=== PATIENT | female | born 1965 | race Caucasian/White ===

== ENCOUNTER → 2024-07-30 13:50 | Outpatient (REF) | payer BC, SELFPAY | LOC: HWWDC 13:50 | PROVIDERS: ATTENDING PHYSICIAN Internal Medicine | DX: Z12.31 Encounter for screening mammogram for malignant neoplasm of breast (principal) | CPT/HCPCS: 77063; 77067 ==

== ENCOUNTER → 2024-08-26 14:55 | Outpatient (REF) | payer BC, SELFPAY | LOC: EMG 14:55 | PROVIDERS: ATTENDING PHYSICIAN Physician Assistant Surgical; FAMILY PHYSICIAN Internal Medicine | DX: M25.562 Pain in left knee (principal) | CPT/HCPCS: 95886; 95909 ==

== ENCOUNTER 2025-04-04 20:30 | Emergency (ER) | payer OTHER, SELFPAY ==
[2025-04-04 20:40] VITALS: BP 142/93
[2025-04-04 20:57] LABS: Hematocrit 43.8 % (37.0-47.0); Hemoglobin 14.8 g/dL (12.0-16.0); Mean Corp Hgb Conc. 33.8 g/dL (33.0-37.0); Mean Corpuscular Volume 84.6 fL (81.0-99.0); Nucleated Red Blood Cells % 0 %; Platelet Count 295 10^3/uL (130-400); Red Cell Dist. Width 12.5 % (11.5-14.5)
[2025-04-04 21:11] LABS: ALT (SGPT) 26 U/L (0-35); AST (SGOT) 20 U/L (14-36); Albumin 4.4 g/dl (3.5-5.0); Alkaline Phosphatase 75 U/L (38-126); Blood Urea Nitrogen 23 mg/dl (7-17); Calcium 10.9 mg/dl (8.4-10.2); Carbon Dioxide 34 mmol/L (22-30); Chloride 99 mmol/L (98-107); Glucose 97 mg/dl (70-99); Potassium 4.4 mmol/L (3.5-5.1); Sodium 138 mmol/L (135-145); Total Protein 7.2 g/dl (6.3-8.2); eGFR > 60.00
[2025-04-04 21:19] LABS: Troponin I < 0.012 ng/ml
--- NOTE | 2025-04-04 22:22 | ED.GENMED ---
History of Present Illness
General
Chief Complaint: Chest Pain
Time Seen by Provider: 04/04/25 22:21
History of Present Illness
History of Present Illness:
59-year-old female history of hyperlipidemia presenting with left-sided chest pressure radiating to her neck that [place]. Patient states that she got up and walked around which did not improve or worsen
symptoms. Patient states the symptoms lasted approximately 20 minutes and then resolved. Patient denies any symptoms at this time. Patient reported back discomfort which is since resolved. Patient denies fever, chills, shortness of breath, cough
or leg swelling. Patient states that she fell like she was having indigestion at the time as well. Patient states that this felt different than her typical GERD. Patient states that she was recently on steroids for sinusitis.
Past History
Past History
ED Past Medical History: Other (Chronic back problems)
ED Past Surgical History: None
Social History
Tobacco: Non-smoker
Alcohol: Occasional
Personal:
Living: with family
Phy Exam
Physical Exam
Physical Exam:
General: Alert, no acute distress
Head: NCAT
Eyes: clear conjunctiva
Neck: supple
Cardiac: regular rate and rhythm, no murmur. Palpable and equal radial pulses bilaterally
Lungs: clear to auscultation bilaterally. No wheezes, rales, or rhonchi. Speaking full unlabored sentences. No respiratory distress.
Abdomen: soft, nondistended nontender. No rebound or guarding.
MSK: no lower extremity edema bilaterally. No deformity
Skin: warm, dry
Neuro: Alert and oriented x3. no focal deficits
Scores
Heart Score for Chest Pain Patients
STEMI patient?: No
History: Moderately Suspicious
ECG: Normal
Age: >45 - <65 years
Risk Factors: 1 or 2 Risk Factors
Troponin: </= Normal Limit
Heart Score for Chest Pain Patients: 3
Heart Score Risk: 2.5% MACE over next 6 weeks
Course
Orders/Labs/Results
Orders:
Orders
04/04/25 20:31
ECG [Electrocardiogram (*1)] Urgent
Reason for Study: Chest Pain
EKG- Treatment ONCE
04/04/25 20:47
Complete Blood Count/With Diff Urgent
Comprehensive Metabolic Panel Urgent
Troponin I Urgent
04/04/25 22:23
EKG- Treatment ONCE
CXR2 [CR Chest - 2 Views ] Urgent
Comment:
Reason For Exam: chest pain
04/04/25 23:45
Electrocardiogram (*1) Urgent
Reason for Study: Chest Pain
04/04/25 23:49
Troponin I Urgent
Abnormal Lab Results
04/04/25
20:47
WBC 11.6 H 10^3/uL
(4.8-10.8)
Abs Immat Gran (auto) 0.3 H 10^3/uL
(0-0.05)
Absolute Lymphs (auto) 4.2 H 10^3/uL
(1.2-3.4)
Absolute Monos (auto) 0.7 H 10^3/uL
(0.1-0.6)
Immature Gran % 2.6 H %
(0-0.5)
Carbon Dioxide 34 H mmol/L
(22-30)
BUN 23 H mg/dl
(7-17)
Calcium 10.9 H mg/dl
(8.4-10.2)
04/04/25 20:47
04/04/25 20:47
Vital Signs
Initial and Last Documented VS:
Initial Vital Signs
Temp Pulse Resp BP Pulse Ox
98 F 79 16 142/93 97
04/04/25 20:40 04/04/25 20:40 04/04/25 20:40 04/04/25 20:40 04/04/25 20:40
Last Documented Vital Signs
Temp Pulse Resp BP Pulse Ox
98 F 87 18 158/85 100
04/04/25 20:40 04/05/25 00:56 04/05/25 00:56 04/05/25 00:56 04/05/25 00:56
MDM/Problems Addressed
Differential Diagnosis Includes:
NSTEMI, GERD, angina, pneumothorax
MDM/Problems Addressed:
Results reviewed. Chest x-ray clear with no focal infiltrate or consolidation, pneumothorax. Troponin negative x 2. Mild leukocytosis at 11.6 but no left shift or bandemia, likely related to recent steroid use. Repeat EKG shows normal sinus
rhythm at 66 bpm with NV 168 QTc 406 no acute ischemic changes. Heart score 3. Vital signs stable. Discussed results with patient at bedside. Stable for discharge with cardiology follow-up next week
*Pulse Oximetry
SaO2: 97
Oxygen Mode of Delivery: Room air
Patient hypoxic: no
*EKG
Interpreted by ED Provider?: Yes (EKG shows normal sinus rhythm at 74 bpm with NV 158 QTc 424 no acute ischemic changes)
*Critical Care Note
Total Time (30-74mins, 75-104mins- exclusive of procedures): Not Applicable
ED Attending Note
-
Portions of this chart may have been created with voice recognition software.� Occasional wrong word or��sound alike� substitutions may have occurred due to the inherent limitations of voice recognition software.
Discharge Plan
Departure
Patient Disposition: Home (Routine Discharge)
Date of Disposition: 04/05/25
Time of Disposition: 00:40
Patient with high blood pressure during this ER visit?: Yes
Discharge Problem:
Chest pain
Instructions: Chest Pain CBC Follow Up, BLOOD PRESSURE
Prescriptions:
No Action
cyclobenzaprine 10 MG tablet
10 mg PO HS Qty: 5 0RF
Rx Instructions:
Muscle spasm
naproxen 500 MG tablet
500 mg PO BID Qty: 10 0RF
Rx Instructions:
Take with food.
prednisone 50 MG tablet
50 mg PO DAILY Qty: 4 0RF
Referrals:
UNKNOWN - PT DOES,NOT KNOW [Unknown Provider]
Jah Luciano MD [Active, Cardiology]
Activity Restrictions/Additional Instructions:
Follow-up with cardiology next week
Return to the emergency department for sweating with chest pain, passing out, shortness of breath or new/worsening symptoms
Interventions
Interventions:
*Risk Screen - Suicide Last Done: 04/04/25 20:41
*General Assessment Last Done: 04/05/25 00:57
*Neglect/Abuse Screening Last Done: 04/04/25 20:41
*ED- Fall Risk Assessment Last Done: 04/05/25 00:57
*ED COVID-19 Vaccine History Last Done: 04/05/25 00:57
*Nursing Disposition Last Done: 04/05/25 00:57
ED- Cardiac Assessment Last Done: 04/04/25 22:50
Discharge Date and Time
Discharge Date/Time: 04/05/25 00:59
Print Language: GAMBIAN
[2025-04-04 22:23] VITALS: BP 161/82
[2025-04-04 22:48] VITALS: BMI 26.6
[2025-04-04 22:52] VITALS: BP 161/82
[2025-04-05 00:21] LABS: Troponin I < 0.012 ng/ml
[2025-04-05 00:56] VITALS: BP 158/85
== END 2025-04-05 00:59 | disposition home or self-care (01) ==
LOC: EMR 20:30
PROVIDERS: Student in an Organized Health Care Education/Training Program; EMERGENCY PHYSICIAN Emergency Medicine; FAMILY PHYSICIAN Internal Medicine
DX: R07.89 Other chest pain (principal); R03.0 Elevated blood-pressure reading, without diagnosis of hypertension; E78.5 Hyperlipidemia, unspecified; K21.9 Gastro-esophageal reflux disease without esophagitis
CPT/HCPCS: 99285; 71046; 80053; 84484; 85025; 93005

== ENCOUNTER → 2025-04-15 09:23 | Outpatient (REF) | payer OTHER, SELFPAY | LOC: HWRCS 09:23 | PROVIDERS: ATTENDING PHYSICIAN Internal Medicine Cardiovascular Disease; FAMILY PHYSICIAN Internal Medicine | DX: R07.2 Precordial pain (principal) | CPT/HCPCS: 93306 ==

== ENCOUNTER → 2025-04-21 14:14 | Outpatient (REF) | payer SELFPAY | LOC: HWRAD 14:14 | PROVIDERS: ATTENDING PHYSICIAN Internal Medicine Cardiovascular Disease; FAMILY PHYSICIAN Internal Medicine | DX: R07.2 Precordial pain (principal) | CPT/HCPCS: 75571 ==

== ENCOUNTER → 2025-05-02 07:41 | Outpatient (REF) | payer OTHER, SELFPAY | LOC: RCS 07:41 | PROVIDERS: ATTENDING PHYSICIAN Internal Medicine Cardiovascular Disease; FAMILY PHYSICIAN Internal Medicine | DX: R07.2 Precordial pain (principal) | CPT/HCPCS: 93017 ==

== ENCOUNTER → 2025-05-15 09:05 | Outpatient (REF) | payer OTHER, SELFPAY | LOC: WDC 09:05 | PROVIDERS: ATTENDING PHYSICIAN Internal Medicine | DX: N63.31 Unspecified lump in axillary tail of the right breast (principal); R22.31 Localized swelling, mass and lump, right upper limb | CPT/HCPCS: 76642; 77062; 77066 ==

== ENCOUNTER → 2025-05-23 11:11 | Outpatient (REF) | payer OTHER, SELFPAY | LOC: HWRCS 11:11 | PROVIDERS: ATTENDING PHYSICIAN Internal Medicine Cardiovascular Disease; FAMILY PHYSICIAN Internal Medicine | DX: R07.2 Precordial pain (principal); R94.39 Abnormal result of other cardiovascular function study | CPT/HCPCS: 78452; 93017; A9500 ==